=== PATIENT | female | born 1980 ===

== ENCOUNTER 2018-07-05 14:40 | Emergency (ER) | payer MEDICAID ==
[~2018-07-05] VITALS: Ht 160 cm; Wt 53.1 kg
== END 2018-07-05 15:34 | disposition home or self-care (01) ==
LOC: ER 14:40
DX: L50.0 Allergic urticaria (principal); R22.0 Localized swelling, mass and lump, head; T78.1XXA Other adverse food reactions, not elsewhere classified, initial encounter
CPT/HCPCS: 99283